=== PATIENT | female | born 1985 | race Caucasian/White ===

== ENCOUNTER 2017-01-07 19:26 | Observation (INO) | payer OTHER ==
[~2017-01-07] VITALS: Ht 157.5 cm; Wt 87.3 kg
[~2017-01-07 19:26] MED LIST: IBUP-1827 PO; TRAM50TA2 PO
[2017-01-07 19:30] VITALS: BP 132/81; PULSE 80; RESP 18; O2SAT 100
--- NOTE | 2017-01-07 20:34 | ED.REPORT ---
HPI-General Illness Date of Service Jan 07, 2017 ED Provider: Faustino Quinonez MD The pt is a 31 y/o female with a hx of GERD who presents to the ED complaining of aching, severe, nonradiating right lower quadrant abdominal cramping, onset 5 hours ago. She then began vomiting profusely and had diarrhea shortly thereafter. She denies hematemesis, hematochezia and fever. She also reports malaise, transient chest pain and shortness of breath with her vomiting that have now resolved, as well as some associated lower back pain. No other complaints noted at this time. Nursing Notes Stated Complaint: VOMITING,BACK PAIN, SOB Chief Complaint: Female Abdominal Pain Nursing Notes Reviewed: Yes Allergies: Coded Allergies: Penicillins (Verified Allergy, Intermediate, Rash,Itching,SOB, 01/07/17) amoxicillin (Verified Allergy, Unknown, 01/07/17) Scheduled PRN Ibuprofen (Ibuprofen) 600 Mg Tablet 600 MG PO Q6H PRN PRN For Mild Pain Ibuprofen (Ibuprofen) 600 Mg Tablet 600 MG PO QID PRN PRN For Pain Tramadol (Tramadol) 50 Mg Tablet 100 MG PO Q6H PRN PRN For Pain General Time Seen by MD: 22:30 Chief Complaint Abdominal pain Hx Obtained From: Patient Arrived By: Walk-in Sudden in Onset?: Yes Onset Occurred: 5 - 8 hours ago Symptom Duration: Since onset Location: : Abdomen Quality: Cramping Radiation: : Does not radiate Severity: Current: Severe Severity: Maximum: Severe Recent Healthcare: No recent doctor visit Similar Sx Previous: No Past Medical History Past Medical History Migraines Pericarditis during Depression Reports: Asthma, GERD Reports: Obesity Past Surgical History Reports none Family History Both sides of family have cardiac disease and cancer Smoking History Never Smoker Social History Alcohol Use: Denies alcohol use Drug Use: Denies drug use Other Social History: Lives with children, Local resident Ambulatory Status Independent Review of Systems Full Review of Systems Constitutional: Reports: Malaise, Denies: Fever Eyes: Denies: Visual loss bilateral Ears / Nose / Throat: Denies: Sore throat Respiratory: Reports: Shortness of breath Cardiovascular: Reports: Chest pain GI: Reports: Abdominal pain, Diarrhea, Nausea, Vomiting, Denies: Hematemesis, Hematochezia Musculoskeletal: Reports: Back pain Hematologic: Denies Bruising Endocrine: Denies: Polyuria Skin: Denies Rash Allergy / Immune: Denies: Itching Neurologic: Reports: Lightheaded, Shaking Psychiatric: Denies: Change mental status Complete sys rev & neg: except as marked. Physical Exam Nursing note and vitals reviewed. Constitutional: Appears uncomfortable. Sitting up in bed rocking back and forth. Well-developed, well-nourished. Not diaphoretic. Head: Normocephalic and atraumatic. Mouth/Throat: Oropharynx is clear and moist. No oropharyngeal exudate. Eyes: EOM are normal. Pupils are equal, round, and reactive to light. Neck: Supple, no tracheal deviation. Cardiovascular: Normal rate, regular rhythm. Equal and intact distal pulses throughout. Pulmonary/Chest: Effort normal and breath sounds normal. No respiratory distress. Abdominal: Soft. No distension. Abdomen diffusely tender to palpation without focal tenderness. There is no rebound or guarding. Bowel sounds present. Musculoskeletal: Range of motion grossly intact, moving all extremities. No edema or tenderness appreciated. Neurological: AOx3. Grossly nonfocal exam. Strength and sensation intact and equal to bilateral upper and lower extremities. Skin: Warm and dry, no rashes or pallor appreciated. Psychiatric: Appropriate mood and affect. Behavior appears normal. Vital Signs Vital Signs Date Time Temp Pulse Resp B/P Pulse Ox O2 Delivery O2 Flow Rate FiO2 01/07/17 23:23 103 117/73 100 Room Air 01/07/17 19:30 36.6 80 18 132/81 100 Room Air Initial VS: Reviewed Interpretation & Diagnostics Lab Results Interpretation Result Diagram: 01/07/17204901/07/172049 Test 01/07/17 20:50 01/07/17 23:17 01/07/17 23:46 White Blood Count 16.8th/mm3 (3.8-10.1) Red Blood Count 5.61mil/mm3 (3.90-5.20) Hemoglobin 16.5g/dL (12.0-15.6) Hematocrit 47.6% (35.0-46.0) Mean Corpuscular Volume 84.8fL (81-100) Mean Corpuscular Hemoglobin 29.4pg (27.0-35.0) Mean Corpuscular Hemoglobin Concent 34.7% (32.0-37.0) Red Cell Distribution Width 12.9% (12.3-15.4) Platelet Count 292bil/L (150-400) Neutrophils (%) (Auto) 84.7% (40-74) Lymphocytes (%) (Auto) 9.1% (14-46) Monocytes (%) (Auto) 5.4% (4-12) Eosinophils (%) (Auto) 0.4% (0-5) Basophils (%) (Auto) 0.2% (0-3) Prothrombin Time 10.6sec (8.1-12.5) Prothromb Time International Ratio 0.99ratio Sodium Level 140mEq/L (134-144) Potassium Level 3.8mEq/L (3.5-5.2) Chloride Level 99mEq/L (97-108) Carbon Dioxide Level 19mmol/L (18-29) Blood Urea Nitrogen 17mg/dL (6-20) Creatinine 0.65mg/dL (0.57-1.00) Estimat Glomerular Filtration Rate 152mL/min (>59) Glucose Level 112mg/dL (60-99) Calcium Level 10.4mg/dL (8.5-10.1) Magnesium Level 1.9mg/dL (1.6-2.6) Total Bilirubin 1.2mg/dL (0.0-1.2) Aspartate Amino Transf (AST/SGOT) 16U/L (0-50) Alanine Aminotransferase (ALT/SGPT) 12U/L (0-32) Alkaline Phosphatase 105U/L (25-150) Troponin T 0.010ug/L (0.0-0.011) Total Protein 9.6g/dL (6.4-8.4) Albumin 5.1g/dL (3.4-5.0) Lipase 28U/L (13-60) HCG Beta Subunit < 0.500mIU/mL Urine Color Yellow (YELLOW) Urine Appearance Clear (CLEAR,HAZY) Urine pH 5.5 (5.0-8.0) Urine Specific [place] 1.015 (1.003-1.035) Urine Protein Negativemg/dL (NEG,TRACE) Urine Glucose (UA) Negativemg/dL (NEGATIVE) Urine Ketones Tracemg/dL (NEGATIVE) Urine Occult Blood Small (NEGATIVE) Urine Nitrite Negative (NEGATIVE) Urine Bilirubin Negative (NEGATIVE) Urine Urobilinogen Normalmg/dL (NORMAL) Urine Leukocyte Esterase Negative (NEGATIVE) Urine RBC 0-2/hpf (0-2) Urine WBC 0-5/hpf (0-5) Urine Epithelial Cells Many/hpf (NONE-MOD) Urine Crystals None seen (NONE SEEN) Urine Bacteria Many/hpf (NONE-FEW) Urine Hyaline Casts None/lpf (NONE) Urine Granular Casts None seen (NONE SEEN) Urine Waxy Casts None seen (NONE SEEN) Urine Red Blood Cell Casts None seen (NONE SEEN) Urine White Blood Cell Casts None seen (NONE SEEN) Urine Mucus None seen (None Seen) Urine Trichomonas None seen (NONE SEEN) Urine Yeast None (NONE SEEN) Urinalysis Comment None Urine Culture Reflexed Indicated Lactic Acid Level 1.3mmol/L (0.4-2.0) ECG Interpretation ECG Interpretation: Normal sinus rhythm. Rate 94. Time: 21:20 Interpreted by: ED physician CT Abd / Pelvis Interpretation Conclusion: Normal caliber appendix. No free air, ascess, or bowel obstruction. liquid density stool throughout the colon sugeest malabsorption/diarrhea. This may relate to a nonspecific enteritis although no gross bowel wall thickening is appreciated. Correlate with pt's sx. There is a 1.6cm rin-enhancing right ovary hypodensity and this is consistent with an involuting corpus luteum. Signed by Dr. Can Reeder 01/07/17 23:09 Study type: Abdominal CT IV contrast Interpretation / Wet Read by: Interpret - Radiologist Re-Eval/Medical Decision Med Decision/Clinical Course In summary, 31-year-old female presenting to the ED for evaluation of nausea, vomiting, and diarrhea associated with abdominal cramping that started earlier today. Differential includes small bowel obstruction, appendicitis, intra- abdominal mass/abscess, pelvic pathology such as ovarian torsion. She is not having any lower abdominal pain per se, nor lower abdominal tenderness. Considered ovarian torsion, however pain is diffuse, bilateral, primarily in the upper part of the abdomen, and patient is having symptoms consistent with gastroenteritis. Do not feel that she needs a pelvic ultrasound at this time, however this may need to be revisited depending on her clinical status. Laboratory studies reviewed, notable for a white blood cell count of 16.8, lactic acid of 2.8, test negative, lipase within normal limits, troponin negative, urinalysis not consistent with infection. CT scan of the patient's abdomen and pelvis was obtained, no acute intra-abdominal abnormality , however there is nonspecific findings consistent with enteritis, which does correlate with her clinical status - incidentally, there is a 1.6 cm enhancing right ovarian hypodensity consistent with an involuting corpus luteum; I do not think that this is entirely responsible for her symptoms at this time. Given IV fluids, Zofran, and pain medication here in the ED with only minimal improvement. Given the severity of the patient's presentation, difficulty tolerating by mouth, lactic acidosis, plan admission for further management and evaluation, IV fluids, and reassessment. Patient agreeable to the plan as stated, no further questions. Source of Hx: Old records Time of Eval: 22:38 Patient Status: Condition unchanged Re-Evaluation/Progress Note: Informed the pt of the plan to do a CT and admit. The pt understands and agrees with the plan. All questions answered. Consultation : Referral / Consult Name: Paul Mendenhall MD Consulted With: Hospitalist Call Returned at: 23:34 Network Control Operator: Will see patient, Agrees with eval, Agrees with plan, Accepts admit Counseled Regarding: Diagnosis, Lab results, Need for admission Discharge & Departure Primary Impression: Nausea & vomiting Vomiting type: unspecified Vomiting Intractability: unspecified Qualified Code: R11.2 - Nausea with vomiting, unspecified Additional Impressions: Diarrhea Diarrhea type: unspecified type Qualified Code: R19.7 - Diarrhea, unspecified Enteritis Disposition: ADMITTED TO HOSPITAL Referrals: Bridgette Soliz Attestation Portions of this note were transcribed by Elisha Jordan. I,, personally performed the history,physical exam and medical decision-making;I reviewed and confirmed the accuracy of the information in the transcribed note. Signed by Sterling Zarate. 01/07/17 copies to: Bridgette Soliz William B MD Jan 07, 2017 20:34 Elisha Jordan Jan 07, 2017 22:36
[2017-01-07] MEDS ORDERED: 0.9% Sodium Chloride 1,000 ML IV ONE ×2 (20:48→22:31)
[2017-01-07] MEDS ORDERED: Ondansetron 2 mg/mL 2 mL Inj IVPUSH PRN (20:50)
[2017-01-07 21:06] LABS: BASOPHILS % (AUTO) 0.2 % (0-3); EOSINOPHILS % (AUTO) 0.4 % (0-5); MONOCYTES % (AUTO) 5.4 % (4-12); Mean Corpuscular Hemoglobin 29.4 pg (27.0-35.0); Mean Corpuscular Volume 84.8 fL (81-100); NEUTROPHILS % (AUTO) 84.7 % (40-74); Platelet Count 292 bil/L (150-400)
[2017-01-07 21:22] LABS: INR 0.99 ratio
[2017-01-07 21:27] LABS: Lipase 28 U/L (13-60)
[2017-01-07 21:36] LABS: Magnesium 1.9 mg/dL (1.6-2.6)
[2017-01-07 23:23] VITALS: BP 117/73; PULSE 103; O2SAT 100
[2017-01-07 23:30] LABS: APPEARANCE,URINE CLEAR (CLEAR,HAZY); COLOR,URINE YELLOW (YELLOW); OCCULT BLOOD,URINE SMALL (NEGATIVE); PH,URINE 5.5 (5.0-8.0); UROBILINOGEN,URINE NORMAL (NORMAL)
[2017-01-07] MEDS ORDERED: Polyethylene Glycol (PEG) 17 Gm Powder PO PRN (23:30)
[2017-01-07] MEDS ORDERED: Alum-Mag Hydrox-Simeth 30 mL Suspension PO PRN (23:30)
--- NOTE | 2017-01-07 23:34 | PCM.HPMED ---
Subjective Date of Service Jan 07, 2017 Primary Provider: Admitting Physician: Primary Care Physician: Bridgette Soliz Attending Physician: Admit Status: From the Emergency Department, Full Admit, Remote Telemetry Chief Complaint: Acute abdominal pain History of Present Illness: Ac Obregon is a 31 y/o female with GERD and History of viral pericarditis who presents to [facility] emergency department complaining of acute abdominal pain Patient was reported to be right lower quadrant abdominal, cramping with some radiation to the left side then wraps around to the back. 9/10 intensity initially and persistent. No clear relieving or exacerbating factors. The onset 5 hours prior to presentation. She then began vomiting profusely and had diarrhea shortly thereafter. She denies hematemesis, hematochezia and fever. Patient ate some lean cruisine for lunch. Denies any sick contacts and no other family members with similar symptoms. Denies any travel and no camping or drinking stream water In the waiting room, she felt lightheadedness and mild shaking. Case discussed with Dr Quinonez, leukocytosis , lactic acidosis with CT showing enteritis Review of Systems: Pertinent positives as noted in HPI. All other systems were reviewed and are negative Allergies Coded Allergies: Penicillins (Verified Allergy, Intermediate, Rash,Itching,SOB, 01/07/17) amoxicillin (Verified Allergy, Unknown, 01/07/17) Home Medications From [facility], not yet confirmed Ac Obregon. [id number] 1985 02/15/2016 12:05 PM 1/4 Mirena 20 mcg/24 hr (5 years) intrauterine device ondansetron 4 mg disintegrating tablet take 1 tablet by oral route every [address] on top of the tongue where they will dissolve, then swallow PMH Acute viral pericarditis, associated to H/O allergy to penicillin URI (upper respiratory infection) Pyelonephritis . Surgical History None reported Family History No history of GI disease or heart disease Social History Hx Alcohol Use: No Hx Substance Use: No Hx Tobacco Use: No Smoking Status: Never Smoker Living Arrangement: with Family Exam Vital Signs Vital Sign - Last Date Time Temp Pulse Resp B/P Pulse Ox O2 Delivery O2 Flow Rate FiO2 01/07/17 23:23 103 117/73 100 Room Air 01/07/17 19:30 36.6 18 Exam General: Alert, Oriented X3, Cooperative, No acute Distress Eyes: PERRLA, Scleral Anicteric Mouth: Mouth Normal, Mucous Membranes Moist/Axis Neck: Supple, no Thyromegaly, trachea central. Chest & Lungs: Clear to auscultation & percussion, No adventitious breath sounds, no crackles, no wheeze Cardiovascular: Normal S1, Normal S2, No Murmurs/Rubs/Gallops, Regular Rate/ Rhythm, Murmur, Other (No JVD, no peripheral edema) Pulses: Radial (present and equal), Dorsalis Pedi (present and equal) Abdomen: Soft, Non-tender, Non-distended, Normoactive bowel tones. Musculoskeletal: Unremarkable. Normal range of motion, no swollen or erythematous joints Extremities: No edema, no cyanosis, no clubbing. Skin: No rashes. Warm and dry, no erythematous areas Neurological: Grossly neurologically intact, has generalized weakness, Normal Speech, Sensation Intact Lymphatic: Lymph nodes Cervical and Axillary not palpable. Lab and Diagnostics Labs Laboratory Tests Test 01/07/17 20:50 01/07/17 23:17 White Blood Count 16.8th/mm3 (3.8-10.1) Red Blood Count 5.61mil/mm3 (3.90-5.20) Hemoglobin 16.5g/dL (12.0-15.6) Hematocrit 47.6% (35.0-46.0) Mean Corpuscular Volume 84.8fL (81-100) Mean Corpuscular Hemoglobin 29.4pg (27.0-35.0) Mean Corpuscular Hemoglobin Concent 34.7% (32.0-37.0) Red Cell Distribution Width 12.9% (12.3-15.4) Platelet Count 292bil/L (150-400) Neutrophils (%) (Auto) 84.7% (40-74) Lymphocytes (%) (Auto) 9.1% (14-46) Monocytes (%) (Auto) 5.4% (4-12) Eosinophils (%) (Auto) 0.4% (0-5) Basophils (%) (Auto) 0.2% (0-3) Prothrombin Time 10.6sec (8.1-12.5) Prothromb Time International Ratio 0.99ratio Sodium Level 140mEq/L (134-144) Potassium Level 3.8mEq/L (3.5-5.2) Chloride Level 99mEq/L (97-108) Carbon Dioxide Level 19mmol/L (18-29) Blood Urea Nitrogen 17mg/dL (6-20) Creatinine 0.65mg/dL (0.57-1.00) Estimat Glomerular Filtration Rate 152mL/min (>59) Glucose Level 112mg/dL (60-99) Lactic Acid Level 2.8mmol/L (0.4-2.0) Calcium Level 10.4mg/dL (8.5-10.1) Magnesium Level 1.9mg/dL (1.6-2.6) Total Bilirubin 1.2mg/dL (0.0-1.2) Aspartate Amino Transf (AST/SGOT) 16U/L (0-50) Alanine Aminotransferase (ALT/SGPT) 12U/L (0-32) Alkaline Phosphatase 105U/L (25-150) Troponin T 0.010ug/L (0.0-0.011) Total Protein 9.6g/dL (6.4-8.4) Albumin 5.1g/dL (3.4-5.0) Lipase 28U/L (13-60) HCG Beta Subunit < 0.500mIU/mL Result Diagram: 01/07/17204901/07/172049 X-Rays, CTs and MRIs CT Abd / Pelvis Interpretation 01/07 Normal caliber appendix. No free air, ascess, or bowel obstruction. liquid density stool throughout the colon sugeest malabsorption/diarrhea. This may relate to a nonspecific enteritis although no gross bowel wall thickening is appreciated. Correlate with pt's sx. There is a 1.6cm rin-enhancing right ovary hypodensity and this is consistent with an involuting corpus luteum. Signed by Dr. Can Reeder 01/07/17 23:09 Study type: Abdominal CT IV contrast Interpretation / Wet Read by: Interpret - Radiologist Assessment & Plan Ac Obregon is a 31 y/o female with GERD and History of viral pericarditis who presents to [facility] emergency department complaining of right lower quadrant abdominal cramping 1. Acute Abdominal pain secondary to Viral gastroenteritis. Present on admission No suspicion for C difficile infection as there was no recent antibiotics exposure. Differential diagnosis includes Food poisoning (preformed toxin) or Protozoa infections like Giardia or Cryptosporidium. There was a confirmed case of Shigella in the community but the patient did not have any bloody diarrhea - nothing by mouth while continuing fluids resuscitations - Stool PCR studies - symptomatic treatments for now with pain management and anti emetic medications - consider Gastroenterology consult based on clinical improvements overnight 2 Lactic acidosis. Present on admission Due to tissue hypoxia - trending levels till normal 3 Leukocytosis. Present on admission Not meeting SIRS criteria at this time. No Urinary tract infection or other infections such as pneumonia - monitor with repeat CBC - Acetaminophen as needed for mild pain/fever/headache - Bowel regimen as needed - Antiemetic as needed Patient admitted under inpatient status with expected length of stay > 2 midnights for severity of present symptoms, complexities of treatment plan and risk for adverse event . Resuscitation Status: CPR: Attempt Resuscitation Paul Mendenhall MD Jan 07, 2017 23:34 Paul Mendenhall MD Jan 07, 2017 23:34
[2017-01-07] MEDS: HYDROmorphone 0.5 mg/0.5 mL iSecure Syringe IVPUSH PRN (23:38)
[2017-01-07] MEDS: Ondansetron 2 mg/mL 2 mL Inj IVPUSH PRN (23:38)
[2017-01-08] VITALS (8 sets, daily range): BP systolic 107–117; BP diastolic 62–75; PULSE 64–103; RESP 16–20; O2SAT 97–100
[2017-01-08] MEDS: 0.9% Sodium Chloride 1,000 ML IV SCH ×2 (03:51→14:52)
--- NOTE | 2017-01-08 04:55 | NUR ---
ADMISSION PT ARRIVE TO [facility] RM 1003 AT 0215 FROM THE ED. PT ABLE TO TRANSFER FROM [facility] TO BED WITH [facility]EA. PT C/O DIZZINESS. PT HAS HAD NVD AND REC'D ZOFRAN AND DILAUDID PRIOR TO ARRIVAL. PT STATES PAIN IS 4-5/10. PT IS NPO, CPR, A/O X3, MAKING NEEDS KNOWN. HAS HIGH ANXIETY OVER NEEDLES AND WORRIED ABOUT WHAT HER PLAN IS. MD IN TO SEE HER AND DISCUSSED POC. PT ANXIETY DECREASED. IV TO LT WRIST VERY PAINFUL AND OCCLUDED. D/C'D AND NEW IV STARTED TO RT FA. IV FLUIDS STARTED. PT ORIENTED TO ROOM ,CALL LIGHT. UP TO BSC WITH SBA. CALL LIGHT IN REACH, CARE CONTINUES
[2017-01-08 05:35] LABS: BASOPHILS % (AUTO) 0.2 % (0-3); EOSINOPHILS % (AUTO) 0 % (0-5); MONOCYTES % (AUTO) 4.6 % (4-12); Mean Corpuscular Hemoglobin 29.8 pg (27.0-35.0); Mean Corpuscular Volume 87.1 fL (81-100); Platelet Count 196 bil/L (150-400)
[2017-01-08] MEDS: Ondansetron 2 mg/mL 2 mL Inj IVPUSH PRN ×2 (05:37→17:14)
[2017-01-08] MEDS: HYDROmorphone 0.5 mg/0.5 mL iSecure Syringe IVPUSH PRN (05:37)
--- NOTE | 2017-01-08 08:43 | DRSVH ---
PROCEDURE: CT ABDOMEN AND PELVIS WITH CONTRAST ([id number]) INDICATIONS: abd pain, vomiting TECHNIQUE: After the administration of intravenous contrast, 5 mm thick sections acquired from the diaphragm to the symphysis. 5 mm coronal and sagittal reformats were acquired. For radiation dose reduction, the following was used: automated exposure control, adjustment of mA and/or kV according to patient siz e. COMPARISON: None. FINDINGS: Image quality: Excellent. ABDOMEN: Lung bases: Lung bases are clear. Heart size is normal. Solid organs: Liver and spleen are normal in size and enhancement. Gallbladder is unremarkable. Bi liary system is non dilated. Pancreas enhances normally. No adrenal nodules. Kidneys demonstrate n ormal size and enhancement, without hydronephrosis. Peritoneum and bowel: Bowel loops demonstrate normal wall thickness and caliber. No free fluid or a ir. Minimal scattered appearance of fluid within the bowel. Nodes and vessels: No retroperitoneal or mesenteric adenopathy by size criteria. Aorta and inferior vena cava are normal in size. Miscellaneous: No ventral hernias. PELVIS: Genitourinary: Bladder wall thickness is normal. Intrauterine device is present. 15 mm enhancing fo cus within the right ovary with trace surrounding fluid. Miscellaneous: No inguinal hernias or adenopathy. Bones: No suspicious bony lesions. No vertebral body compression fractures. IMPRESSION: 1. Mild scattered fluid within the bowel consistent with given history of diarrhea. No obstruction or free air. 2. 15 mm enhancing right ovary and focus of adjacent fluid suggestive of involuting hemorrhagic cyst. Dictated by: Billie Reeec M.D. on 01/08/2017 at 8:39 Approved by: Billie Reece M.D. on 01/08/2017 at 8:41
--- NOTE | 2017-01-08 14:54 | PCM.PNMED ---
Subjective Date of Service Jan 08, 2017 Subjective Pt states she is still dizzy and nauseated. One large BM this AM but had none thereafter. Patient says her back is sore from sleeping poorly. No other complaints. Exam Vital Signs Vital Sign - Last Date Time Temp Pulse Resp B/P Pulse Ox O2 Delivery O2 Flow Rate FiO2 01/08/17 08:27 83 01/08/17 06:27 36.8 16 107/64 97 Room Air Intake and Output 01/07/17 01/07/17 01/08/17 Cumulative From/Thru 15:00 23:00 07:00 01/07/17 19:30 - 01/08/17 03:41 Intake Total 999 ml 999 ml 1998 ml Balance 999 ml 999 ml 1998 ml Intake IV Total 999 ml 999 ml 1998 ml Exam General: NAD HEENT: NCAT Heart: RRR, no s3/s4 Lungs: CTA, no crackles or wheezes Abd: Soft, hyperactive bowel sounds Ext: w/o edema neuro: no focal deficits Psych: No anxiety IVs and Medications IV Fluids 590 cc/hr NSS Medications Reviewed: Medications were reviewed in detail Lab and Diagnostics Result Diagram: 01/08/1751201/07/172049 X-Rays, CTs and MRIs CT Abd / Pelvis Interpretation 01/07 Normal caliber appendix. No free air, ascess, or bowel obstruction. liquid density stool throughout the colon sugeest malabsorption/diarrhea. This may relate to a nonspecific enteritis although no gross bowel wall thickening is appreciated. Correlate with pt's sx. There is a 1.6cm rin-enhancing right ovary hypodensity and this is consistent with an involuting corpus luteum. Signed by Dr. Can Reeder 01/07/17 23:09 Study type: Abdominal CT IV contrast Interpretation / Wet Read by: Interpret - Radiologist Assessment & Plan Ac Obregon is a 31 y/o female with GERD and History of viral pericarditis who presents to [facility] emergency department complaining of right lower quadrant abdominal cramping Acute Abdominal pain secondary to Viral gastroenteritis. Present on admission improving - Stool PCR studies showed norovirus - symptomatic treatments for now with pain management and anti emetic medications -- diet is advanced, fluids are cut to 50 cc/hr -- Discontinue telemetric monitoring Dizziness, nausea, POA active -- Diet will be advanced to full liquids, she can go home in the am if tolerating diet. Lactic acidosis. Present on admission resolved Due to tissue hypoxia - Resolved with hydration Leukocytosis. Present on admission resolved Not meeting SIRS criteria at this time. No Urinary tract infection or other infections such as pneumonia - monitored with daily cbc Acute back pain active -- PO tramadol -- By mouth ibuprofen - Acetaminophen as needed for mild pain/fever/headache - Bowel regimen as needed - Antiemetic as needed Patient admitted under inpatient status with expected length of stay > 2 midnights for severity of present symptoms, complexities of treatment plan and risk for adverse event . Resuscitation Status: CPR: Attempt Resuscitation Time spent 30 min Ana Rosa Aguila DO Jan 08, 2017 08:41
--- NOTE | 2017-01-08 15:00 | NUR ---
Social Work: Screening/Readiness for Discharge/Multidisciplinary Rounds D: EMR reviewed. Pt is a 31 y/o female admitted [facility] - no readmit score assigned - for nausea, vomiting, and diarrhea per H&P. Pt's insurance is [employer] and PCP is ANKUR Correa. Pt's NOK is SO Jordan Patel [phone]. Pt lives at home with family in [place]. SW screened pt's EMR - pt does not screen in for full assessment. SW discussed pt in multidisciplinary rounds and with MD regarding potential discharge planning needs. No anticipated discharge needs at this time, no MD orders received. SW will continue to follow. Pt refused DPOA/advanced directive ppw. A: Pt who is independent at baseline. P: Pt anticipated to discharge home with SO via POV. No anticipated discharge needs at this time, no MD orders received. SW will continue to follow for needs. JEANA Cooley
[2017-01-09] MEDS: 0.9% Sodium Chloride 1,000 ML IV SCH (00:05)
--- NOTE | 2017-01-09 02:07 | NUR ---
GI; up to the bathroom to void with standby assistance. No bms reported tonight. No c/o n/v.
[2017-01-09 06:46] VITALS: BP 106/70; PULSE 62; RESP 16; O2SAT 99
[2017-01-09 08:11] VITALS: BP 96/61; PULSE 61; RESP 16; O2SAT 99
--- NOTE | 2017-01-09 08:14 | NUR ---
GI/Appetite No BM yet this morning or for NOC shift; per pt "woke up hungry this morning." Pt requesting normal/general diet. Will pass onto MD in rounds this morning. Care ongoing.
--- NOTE | 2017-01-09 11:11 | PCM.DIMED ---
Discharge Instructions Date of Service Jan 09, 2017 Dates of Hospitalization Jan 08, 2017 at 01:39 Discharge Diagnosis Discharge Diagnosis Viral Gastroenteritis Diet Discharge Diet: Other (BRAT diet, advance as tolerated. Avoid high fat, sugar containing foods ) Activity Discharge Activity: No restrictions Call your provider Call your provider for: Fever or Chills, Excessive diarrhea Patient Instructions Follow-up with PCP in: 1 week Aurelio Carson MD Jan 09, 2017 11:11
--- NOTE | 2017-01-09 11:13 | PCM.DC.MED ---
Discharge Summary Date of Service Jan 09, 2017 Dates of Hospitalization Date of Hospital Admission Jan 08, 2017 at 01:39 Date of Discharge: Jan 09, 2017 Providers: Admitting Physician: Paul Mendenhall MD Primary Care Physician: Bridgette Soliz Attending Physician: Ana Rosa Aguila DO Diagnosis at Time of Discharge Diagnosis at Time of Discharge Viral Gastroenteritis Procedures XRay, CTs & MRIs CT Abd / Pelvis Interpretation 01/07 Normal caliber appendix. No free air, ascess, or bowel obstruction. liquid density stool throughout the colon sugeest malabsorption/diarrhea. This may relate to a nonspecific enteritis although no gross bowel wall thickening is appreciated. Correlate with pt's sx. There is a 1.6cm rin-enhancing right ovary hypodensity and this is consistent with an involuting corpus luteum. Signed by Dr. Can Reeder 01/07/17 23:09 Study type: Abdominal CT IV contrast Interpretation / Wet Read by: Interpret - Radiologist Brief History Ac Obregon is a 31 y/o female with GERD and History of viral pericarditis who presents to [facility] emergency department complaining of acute abdominal pain Patient was reported to be right lower quadrant abdominal, cramping with some radiation to the left side then wraps around to the back. 9/10 intensity initially and persistent. No clear relieving or exacerbating factors. The onset 5 hours prior to presentation. She then began vomiting profusely and had diarrhea shortly thereafter. She denies hematemesis, hematochezia and fever. Patient ate some lean cruisine for lunch. Denies any sick contacts and no other family members with similar symptoms. Denies any travel and no camping or drinking stream water In the waiting room, she felt lightheadedness and mild shaking. Case discussed with Dr Quinonez, leukocytosis , lactic acidosis with CT showing enteritis Hospital Course Ac Obregon is a 31 y/o female with GERD and History of viral pericarditis who presents to [facility] emergency department complaining of right lower quadrant abdominal cramping Acute Abdominal pain secondary to Viral gastroenteritis. Present on admission improving - Stool PCR studies showed norovirus - symptomatic treatments for now with pain management and anti emetic medications -- diet is advanced: BRAT Dizziness, nausea, POA resolved Lactic acidosis. Present on admission resolved Due to tissue hypoxia - Resolved with hydration Leukocytosis. Present on admission resolved Not meeting SIRS criteria at this time. No Urinary tract infection or other infections such as pneumonia - monitored with daily cbc Acute back pain active -- PO tramadol -- By mouth ibuprofen - Acetaminophen as needed for mild pain/fever/headache - Bowel regimen as needed - Antiemetic as needed Patient admitted under inpatient status with expected length of stay > 2 midnights for severity of present symptoms, complexities of treatment plan and risk for adverse event . Exam Vital Signs (Last) Date Time Temp Pulse Resp B/P Pulse Ox O2 Delivery O2 Flow Rate FiO2 01/09/17 08:11 36.8 61 16 96/61 99 Room Air Test 01/07/17 20:50 01/07/17 23:17 01/07/17 23:46 01/08/17 05:13 Prothrombin Time 10.6sec (8.1-12.5) Prothromb Time International Ratio 0.99ratio Sodium Level 140mEq/L (134-144) Potassium Level 3.8mEq/L (3.5-5.2) Chloride Level 99mEq/L (97-108) Carbon Dioxide Level 19mmol/L (18-29) Blood Urea Nitrogen 17mg/dL (6-20) Creatinine 0.65mg/dL (0.57-1.00) Estimat Glomerular Filtration Rate 152mL/min (>59) Glucose Level 112mg/dL (60-99) Calcium Level 10.4mg/dL (8.5-10.1) Magnesium Level 1.9mg/dL (1.6-2.6) Total Bilirubin 1.2mg/dL (0.0-1.2) Aspartate Amino Transf (AST/SGOT) 16U/L (0-50) Alanine Aminotransferase (ALT/SGPT) 12U/L (0-32) Alkaline Phosphatase 105U/L (25-150) Troponin T 0.010ug/L (0.0-0.011) Total Protein 9.6g/dL (6.4-8.4) Albumin 5.1g/dL (3.4-5.0) Lipase 28U/L (13-60) HCG Beta Subunit < 0.500mIU/mL Urine Color Yellow (YELLOW) Urine Appearance Clear (CLEAR,HAZY) Urine pH 5.5 (5.0-8.0) Urine Specific [place] 1.015 (1.003-1.035) Urine Protein Negativemg/dL (NEG,TRACE) Urine Glucose (UA) Negativemg/dL (NEGATIVE) Urine Ketones Tracemg/dL (NEGATIVE) Urine Occult Blood Small (NEGATIVE) Urine Nitrite Negative (NEGATIVE) Urine Bilirubin Negative (NEGATIVE) Urine Urobilinogen Normalmg/dL (NORMAL) Urine Leukocyte Esterase Negative (NEGATIVE) Urine RBC 0-2/hpf (0-2) Urine WBC 0-5/hpf (0-5) Urine Epithelial Cells Many/hpf (NONE-MOD) Urine Crystals None seen (NONE SEEN) Urine Bacteria Many/hpf (NONE-FEW) Urine Hyaline Casts None/lpf (NONE) Urine Granular Casts None seen (NONE SEEN) Urine Waxy Casts None seen (NONE SEEN) Urine Red Blood Cell Casts None seen (NONE SEEN) Urine White Blood Cell Casts None seen (NONE SEEN) Urine Mucus None seen (None Seen) Urine Trichomonas None seen (NONE SEEN) Urine Yeast None (NONE SEEN) Urinalysis Comment None Urine Culture Reflexed Indicated Lactic Acid Level 1.3mmol/L (0.4-2.0) White Blood Count 8.0th/mm3 (3.8-10.1) Red Blood Count 4.56mil/mm3 (3.90-5.20) Hemoglobin 13.6g/dL (12.0-15.6) Hematocrit 39.7% (35.0-46.0) Mean Corpuscular Volume 87.1fL (81-100) Mean Corpuscular Hemoglobin 29.8pg (27.0-35.0) Mean Corpuscular Hemoglobin Concent 34.3% (32.0-37.0) Red Cell Distribution Width 12.8% (12.3-15.4) Platelet Count 196bil/L (150-400) Neutrophils (%) (Auto) 85.0% (40-74) Lymphocytes (%) (Auto) 10.0% (14-46) Monocytes (%) (Auto) 4.6% (4-12) Eosinophils (%) (Auto) 0% (0-5) Basophils (%) (Auto) 0.2% (0-3) Test 01/08/17 05:35 Hold Urine Received (Received) Followup Plan Discharge Diet: Other (BRAT diet, advance as tolerated. Avoid high fat, sugar containing foods ) Discharge Activity: No restrictions Follow-up with PCP in: 1 week Time spent 35 mins Aurelio Carson MD Jan 09, 2017 11:13
[2017-01-09 13:01] VITALS: BP 100/71; PULSE 71; RESP 16; O2SAT 99
--- NOTE | 2017-01-09 13:37 | NUR ---
PO Intake Pt started on BRAT diet; tolerating PO intake well. No c/o N/V/D, no BM today. Will let MD know; care ongoing.
--- NOTE | 2017-01-09 14:05 | NUR ---
Social Work: Discharge/Multidisciplinary Rounds D: EMR reviewed. Pt is on day 1 of hospitalization. Pt discussed in multidisciplinary rounds and with MD regarding potential discharge planning needs. No discharge needs indicated, no MD orders received. Pt refused DPOA/advanced directive ppw. A: Pt who is independent at baseline. P: Pt to discharge home with SO via POV. No discharge needs identified, no MD orders received. SW will continue to follow for needs. JEANA Cooley
--- NOTE | 2017-01-09 15:13 | NUR ---
Discharge Pt to discharge to home ind; A&Ox3, VSS, able to TREVINO, ind in room with needs, no c/o N/V/D or BM today, no c/o pain. 1 IV access discontinued; pt given written and verbal instructions to f/u with PCP within 1 week, s/s of children at home coming down with virus, instructed pt to follow BRAT diet for about a week until seen by PCP to which pt states understanding. No Rx's given today. All personal belongings with pt at time of discharge.
== END 2017-01-09 15:18 | disposition home or self-care (01) ==
LOC: SED 19:26 → OSC 01-08 01:39
PROVIDERS: ADMIT Hospitalist; ATTEND Family Medicine
DX: A08.4 Viral intestinal infection, unspecified (principal); J45.909 Unspecified asthma, uncomplicated; E87.2 Acidosis; D72.829 Elevated white blood cell count, unspecified; R42 Dizziness and giddiness; M54.9 Dorsalgia, unspecified; K21.9 Gastro-esophageal reflux disease without esophagitis
CPT/HCPCS: 36415; 74177; 80053; 81000; 81025; 83605; 83690; 83735; 84484; 84702; 85025; 85610; 87086; 87088; 87507; 93005; 96361; 96374; 96375; 96376; 99285; G0378; J1170; J2405; J7030; Q9967